=== PATIENT | female | born 1990 | race Caucasian/White ===

== ENCOUNTER 2023-12-12 11:52 | Emergency (ER) | payer OTHER, SELFPAY ==
[2023-12-12 12:04] VITALS: BP 157/95
[2023-12-12] MEDS: ZOFRAN 4 MG IV (12:30)
[2023-12-12] MEDS: TORADOL 15 MG IV (12:30)
[2023-12-12 12:34] VITALS: BMI 38.4
--- NOTE | 2023-12-12 12:39 | ED.GENMED ---
History of Present Illness
General
Chief Complaint: Flank Pain
Source: patient
Exam Limitations: none
Time Seen by Provider: 12/12/23 12:28
Travel History
Have you had any contact with someone who has COVID-19?: No
Do you have any symptoms of coronavirus? Fever > 100 degrees, chills, cough, shortness of breath, sore throat, loss of taste or smell, muscle aches, or headache?: No
History of Present Illness
History of Present Illness:
33-year-old female presents with sudden onset right flank and mid abdominal pain this morning. Sharp in nature been fairly constant since this morning. Slightly nauseous no vomiting. No urinary symptoms. She had some coffee in the center line
earlier and the pain seemed to get worse. No prior abdominal surgical history. Last menstrual cycle about 5 days ago which was normal. The pain is not pleuritic. No other
Phy Exam
Physical Exam
Physical Exam:
General: uncomfortable appearing female no acute respiratory distress
HEENT: Normocephalic atraumatic
Heart: Regular rate and rhythm no murmurs
Lungs: Clear to auscultation bilaterally no wheeze
Abdomen: Soft tender to the right mid abdomen and costovertebral angle. Normal bowel sounds nondistended negative Kaur sign
Extremities: No cyanosis or edema
Skin: Warm no rash
Course
Orders/Labs/Results
Orders:
Orders
12/12/23 12:24
Test Result ONCE
12/12/23 12:25
Complete Blood Count/With Diff Urgent
Comprehensive Metabolic Panel Urgent
HCG, Serum Qualitative Screen Urgent
Urinalysis Reflex To Culture Urgent
Date Specimen was Collected: 12/12/23
Time Specimen was Collected: 12:24
Urine Microscopic Reflex Cult Urgent
12/12/23 12:28
Ketorolac [Toradol] 15 mg .ROUTE .STK-MED ONE
Ketorolac [Toradol] 15 mg IV NOW STA
Ondansetron Injectable [Zofran] 4 mg .ROUTE .STK-MED ONE
12/12/23 12:29
Ondansetron Injectable [Zofran] 4 mg IV NOW STA
12/12/23 12:34
CT Abd/pel Without Iv Or Oral Urgent
Comment:
Reason For Exam: right flank pain
12/12/23 13:05
HYDROmorphone [Dilaudid] 0.5 mg IV NOW STA
12/12/23 13:46
HYDROmorphone [Dilaudid] 1 mg IV NOW STA
Abnormal Lab Results
12/12/23
12:25
MCH 32.4 H pg
(27.0-31.0)
MPV 11.0 H fL
(7.4-10.4)
Glucose 151 H mg/dl
(70-99)
Urine Ketones Trace A
(Negative)
Ur Occult Blood Reflex 3+ A
(Negative)
Leukocyte Esterase Rfl Trace A
(Negative)
Urine Bacteria (Reflex) Few A
(Negative)
12/12/23 12:25
12/12/23 12:25
Vital Signs
Initial and Last Documented VS:
Initial Vital Signs
Temp Pulse Resp BP Pulse Ox
97.9 F 74 18 157/95 100
12/12/23 12:04 12/12/23 12:04 12/12/23 12:04 12/12/23 12:04 12/12/23 12:04
Last Documented Vital Signs
Temp Pulse Resp BP Pulse Ox
98.2 F 78 18 131/92 98
12/12/23 13:59 12/12/23 15:56 12/12/23 15:56 12/12/23 15:56 12/12/23 15:56
MDM/Problems Addressed
Differential Diagnosis Includes:
Right flank pain sudden onset. Consider renal colic versus biliary colic. Last menstrual cycle 5 days ago do not suspect ectopic but will check test. Seems to be high for ovarian related pathology. Check CT scan urinalysis and labs.
Treat symptoms with Toradol Zofran
*Critical Care Note
Total Time (30-74mins, 75-104mins- exclusive of procedures): Not Applicable
Update Note
Update Note:
CT demonstrates 5 mm stone at the distal right UVJ with mild hydronephrosis. Patient did require several rounds of pain medicine and is now comfortable. Urinalysis without sign of infection. Will plan on discharge home with medicine for symptoms.
Urology follow-up recommended and return precautions were given
ED Attending Note
-
Portions of this chart may have been created with voice recognition software.� Occasional wrong word or��sound alike� substitutions may have occurred due to the inherent limitations of voice recognition software.
Discharge Plan
Departure
Patient Disposition: Home (Routine Discharge)
Date of Disposition: 12/12/23
Time of Disposition: 15:45
Patient with high blood pressure during this ER visit?: No
Discharge Problem:
Kidney stone
Instructions: Kidney Stones (DC)
Prescriptions:
New
oxycodone-acetaminophen [Percocet] 5-325 mg tablet
1 tab PO Q8H PRN (Reason: Pain) Qty: 7 0RF
ibuprofen 600 mg tablet
600 mg PO TID PRN (Reason: Pain) Qty: 14 0RF
tamsulosin [Flomax] 0.4 mg capsule
0.4 mg PO DAILY Qty: 10 0RF
No Action
prenat.vits,asia,rex-uzov-hoglo [ Vitamin] 1 EACH tablet
1 tab PO DAILY
ibuprofen 600 MG tablet
600 mg PO Q4HPRN PRN (Reason: moderate pain/cramps) 0RF
Referrals:
Raisa Barros PA-C [Family Provider] -
Adam Roberts MD [Active] -
Activity Restrictions/Additional Instructions:
Drink plenty fluids. Use medicine as prescribed as needed for pain. Return here if the pain is not responding to the medicine you are vomiting or develop a fever. Follow-up with urology otherwise
Interventions
Interventions:
*Risk Screen - Suicide Last Done: 12/12/23 12:04
*General Assessment Last Done: 12/12/23 12:04
*Neglect/Abuse Screening Last Done: 12/12/23 12:04
*ED COVID-19 Vaccine History Last Done: 12/12/23 12:04
*Nursing Disposition Last Done: 12/12/23 15:58
AN-Sbvduf-Vadoethbfn Assessment Last Done: 12/12/23 13:44
ED-Female Genitourinary Assessment Last Done: 12/12/23 13:44
Discharge Date and Time
Discharge Date/Time: 12/12/23 16:00
[2023-12-12 12:43] LABS: % Basophils 1.1 % (0-2); % Eosinophils 1.2 % (0-6); % Immature Granulocytes 0.4 % (0-0.5); % Lymphocytes 39.1 % (20.5-51.1); % Monocytes 6.6 % (1.7-9.3); % Neutrophils 51.6 % (42.2-75.2); Absolute Basophils 0.1 10^3/uL (0-0.2); Absolute Eosinophils 0.1 10^3/uL (0-0.7); Absolute Lymphocytes 3.3 10^3/uL (1.2-3.4); Absolute Monocytes 0.6 10^3/uL (0.1-0.6); Absolute Neutrophils 4.3 10^3/uL (1.4-6.5); Hematocrit 38.8 % (37.0-47.0); Mean Corp Hgb Conc. 36.1 g/dL (33.0-37.0); Mean Corpuscular Hgb 32.4 pg (27.0-31.0); Mean Corpuscular Volume 89.8 fL (81.0-99.0); Nucleated Red Blood Cells % 0 %; Platelet Count 244 10^3/uL (130-400); Red Blood Cell Count 4.32 10^6/uL (4.20-5.40); Red Cell Dist. Width 11.9 % (11.5-14.5); White Blood Cell Count 8.3 10^3/uL (4.8-10.8)
[2023-12-12 12:49] LABS: Urine Albumin Negative (Neg - Trace); Urine Bilirubin Negative (Negative); Urine Character Clear (Clear); Urine Color Yellow; Urine Glucose Negative (Negative); Urine Ketone Trace (Negative); Urine Leukocyte Trace (Negative); Urine Nitrite Negative (Negative); Urine Occult Blood 3+ (Negative); Urine Specific Gravity 1.025 (<1.030); Urine Urobilinogen Negative (Neg - 1+)
[2023-12-12 12:53] LABS: ALT (SGPT) 23 U/L (0-35); AST (SGOT) 28 U/L (14-36); Albumin 4.7 g/dl (3.5-5.0); Alkaline Phosphatase 80 U/L (38-126); Blood Urea Nitrogen 10 mg/dl (7-17); Calcium 9.2 mg/dl (8.4-10.2); Carbon Dioxide 24 mmol/L (22-30); Chloride 104 mmol/L (98-107); Estimated Creatinine Clearance 115 ml/min; Glucose 151 mg/dl (70-99); Potassium 3.7 mmol/L (3.5-5.1); Sodium 136 mmol/L (135-145); Total Bilirubin 0.7 mg/dl (0.2-1.3); Total Protein 7.5 g/dl (6.3-8.2); eGFR > 60.00
[2023-12-12 12:54] LABS: HCG, Serum Qualitative Screen Negative
[2023-12-12 13:04] LABS: Urine Mucus Few; Urine Squamous Cell >30 /LPF (Few)
[2023-12-12 13:05] LABS: Urine Bacteria Few (Negative); Urine Red Blood Cell 0-2 /HPF (0-2)
[2023-12-12] MEDS: DILAUDID 0.5 MG IV (13:07)
[2023-12-12] MEDS: DILAUDID 1 MG IV (13:52)
[2023-12-12 13:59] VITALS: BP 140/77
[2023-12-12 15:56] VITALS: BP 131/92
== END 2023-12-12 16:00 | disposition home or self-care (01) ==
LOC: EMR 11:52
PROVIDERS: Registered Nurse; EMERGENCY PHYSICIAN Emergency Medicine; FAMILY PHYSICIAN Physician Assistant Medical
DX: N13.2 Hydronephrosis with renal and ureteral calculous obstruction (principal); R11.0 Nausea
CPT/HCPCS: 99284; 96374; 96375 ×2; 96376; 74176; 80053; 81003; 81015; 84703; 85025

== ENCOUNTER → 2023-12-18 14:14 | Outpatient (REF) | payer OTHER, SELFPAY | LOC: RAD 14:14 | PROVIDERS: ATTENDING PHYSICIAN Physician Assistant Medical | DX: N20.0 Calculus of kidney (principal) | CPT/HCPCS: 74018 ==